=== PATIENT | male | born 1945 | race African-American/Black ===

== ENCOUNTER 2018-05-30 09:25 | Emergency (ER) | payer MEDICARE, MEDICAID ==
[~2018-05-30] VITALS: Ht 182.9 cm; Wt 127.3 kg
[~2018-05-30 09:25] MED LIST: CARI350 PO; HYDR-309 PO
[2018-05-30] MEDS ORDERED: KETOROLAC TROMETHAMINE 30 MG/ML VIAL IM ONE (10:45)
[2018-05-30 11:04] VITALS: BP 147/85
== END 2018-05-30 12:43 | disposition home or self-care (01) ==
LOC: EMS 09:26
DX: S69.91XA Unspecified injury of right wrist, hand and finger(s), initial encounter (principal); G89.29 Other chronic pain; M54.9 Dorsalgia, unspecified; W23.0XXA Caught, crushed, jammed, or pinched between moving objects, initial encounter; Y93.89 Activity, other specified; Y92.89 Other specified places as the place of occurrence of the external cause; Y99.8 Other external cause status
CPT/HCPCS: 29130; 73140; 96372; 99284; J1885

== ENCOUNTER 2024-12-15 17:48 | Emergency (ER) | payer MEDICARE, OTHER ==
[~2024-12-15] VITALS: Ht 175.3 cm; Wt 100.0 kg
[2024-12-15] MEDS ORDERED: AMOX-457 PO (22:16)
[2024-12-15] MEDS: PERTUSS(ACELL),DIPH,TET/PF 0.5 ML SYRINGE [ADULT] IM. ONE (22:44)
[2024-12-15 22:45] VITALS: BP 139/81; PULSE 88; RESP 18; TEMP 97.3; O2SAT 99
== END 2024-12-15 23:28 | disposition home or self-care (01) ==
LOC: EMS 17:48
DX: S81.852A Open bite, left lower leg, initial encounter (principal); M19.90 Unspecified osteoarthritis, unspecified site; Z72.89 Other problems related to lifestyle; W54.0XXA Bitten by dog, initial encounter; Y93.89 Activity, other specified; Y92.89 Other specified places as the place of occurrence of the external cause; Y99.8 Other external cause status
CPT/HCPCS: 99283; Z7502

== ENCOUNTER 2025-02-08 13:46 | Emergency (ER) | payer OTHER ==
[~2025-02-08] VITALS: Ht 182.9 cm; Wt 113.6 kg
[~2025-02-08 13:46] MED LIST changes: +AMOX-457 PO; -CARI350 PO; -HYDR-309 PO
[2025-02-08 13:58] VITALS: TEMP 97.9
[2025-02-08] MEDS ORDERED: CLOT113C TP (16:20)
[2025-02-08] MEDS ORDERED: ACET-66 PO (16:20)
[2025-02-08 16:41] VITALS: BP 124/79; PULSE 86; RESP 18; O2SAT 98
== END 2025-02-08 16:43 | disposition home or self-care (01) ==
LOC: EMS 13:52
DX: M79.671 Pain in right foot (principal); M79.672 Pain in left foot; B35.3 Tinea pedis; B35.1 Tinea unguium; M21.42 Flat foot [pes planus] (acquired), left foot; M21.41 Flat foot [pes planus] (acquired), right foot; M19.90 Unspecified osteoarthritis, unspecified site; Z98.890 Other specified postprocedural states
CPT/HCPCS: 99282; Z7502

== ENCOUNTER 2025-07-27 15:19 | Emergency (ER) | payer OTHER ==
[~2025-07-27] VITALS: Ht 182.9 cm; Wt 118.2 kg
[~2025-07-27 15:19] MED LIST changes: +ACET-66 PO; -AMOX-457 PO; +CLOT113C TP
[2025-07-27 15:25] VITALS: TEMP 98.5
[2025-07-27] MEDS ORDERED: AEC81 PO (15:26)
[2025-07-27] MEDS: BACITRACIN 28 GM OINTMENT TP ONE (16:20)
[2025-07-27 18:10] VITALS: BP 133/82; PULSE 76; RESP 18; O2SAT 96
== END 2025-07-27 18:15 | disposition home or self-care (01) ==
LOC: EMS 15:19
DX: S60.412A Abrasion of right middle finger, initial encounter (principal); S60.414A Abrasion of right ring finger, initial encounter; G89.29 Other chronic pain; M19.90 Unspecified osteoarthritis, unspecified site; M54.9 Dorsalgia, unspecified; Z79.82 Long term (current) use of aspirin; W19.XXXA Unspecified fall, initial encounter; Y93.89 Activity, other specified; Y92.89 Other specified places as the place of occurrence of the external cause; Y99.8 Other external cause status
CPT/HCPCS: 99282; Z7502; Z7610